=== PATIENT | female | born 1985 | race Caucasian/White ===

== ENCOUNTER 2020-04-27 02:23 | Outpatient (CLI) | payer OTHER, SELFPAY ==
[2020-04-27 18:54] LABS: SARS-CoV-2 RNA PCR Negative
== END 2020-04-27 02:24 | disposition home or self-care (01) ==
PROVIDERS: PCP Physician Assistant; Visit Provider Obstetrics & Gynecology
DX: Z01.812 Encounter for preprocedural laboratory examination (principal); Z20.828 Contact with and (suspected) exposure to other viral communicable diseases
CPT/HCPCS: 87635; C9803; U0003

== ENCOUNTER 2020-04-28 01:32 | Day surgery (SDC) | payer OTHER, SELFPAY ==
[2020-04-26 17:32] VITALS: BMI 19.1
--- NOTE | 2020-04-27 22:40 | PM.IMHP ---
H&P: HPI History of Present Illness Date/Time: 04/27/20 22:40 Chief complaint: missed AB Narrative: 35 y/o at 11 weeks gestation by LMP 02/10/2020 giving a due date of 11/16/20. She presented to the office on 04/26 for a new OB visit, but heart tones were not auscultated. Ultrasound exam showed wyatt IUP with CRL consistent with 8 weeks, with no cardiac motion, a misshapen gestational sac. She has had no bleeding. She desires surgical management. Review of Systems Review of Systems: All systems reviewed & are unremarkable except as noted in HPI and below PMFSH Past Medical History Medical History Migraine Right sided abdominal pain Family History Family History Grandparent Diabetes mellitus Family history of pancreatic cancer Father Patient's father is in good health Other Family history of lymphoma Family history of malignant neoplasm of thyroid Social History Social History Smoking status: Never smoker Second hand tobacco smoke exposure: No Alcohol intake: current Spiritual care concerns: No Comments First was early SAB not requiring D&C. Meds Home Medications and Allergies Home Medications Medication Instructions Recorded Confirmed Type calcium carbonate [Calcium 500] 500 mg PO DAILY 04/26/20 04/26/20 History magnesium 200 mg PO DAILY 04/26/20 04/26/20 History vit no.[id number] 1 tablet PO DAILY 04/26/20 04/26/20 History [ Vitamin] Allergies Allergy/AdvReac Type Severity Reaction Status Date / Time amoxicillin Allergy Unknown Rash Verified 04/26/20 17:47 Sulfa (Sulfonamide Allergy Unknown Rash Verified 04/26/20 17:47 Antibiotics) IVP DYE Allergy Rash Uncoded 04/26/20 17:47 Exam Const: Orientation/consciousness: patient oriented x3 Other: Well-developed, well-nourished female in no acute distress. Neck: Thyroid: thyroid normal Lymphatic: no lymphadenopathy noted (in neck, axilla or inguinal nodes) Resp: Effort & Inspection: normal respiratory effort Auscultation: clear to auscultation bilaterally Cardio: Rate: regular rate Rhythm: regular rhythm Heart sounds: S1 normal heart sound present and S2 normal heart sound present GI: Other: ABD: Soft, nontender, nondistended. No guarding or rebound tenderness. No hepatosplenomegaly. : General: Yes no CVA tenderness Other: External genitalia: normal female hair distribution, without lesion. Urethral meatus: no lesion, non prolapsed. Bladder: no mass, nontender Vagina: well-estrogenized, without lesion or discharge. No cystocele or rectocele. Cervix: no lesion or discharge. Uterus: 8-10 weeks gestational size, anteverted, freely mobile, nontender Adnexa: no mass or tenderness. Anus/perineum: no lesions, nontender Back/Spine/Pelvis: Back: no CVA tenderness Skin: General skin exam: normal color and no rashes or lesions noted Neuro: General: patient oriented x3 Extrem: Other: Extremities: nontender with no edema Psych: Mental Status: mental status grossly normal Affect: normal affect Assessment and Plan Assessment and plan (1) Missed : Code(s): O02.1 - Missed Status: Acute Assessment and Plan: I offered her expectant management versus surgical management. She desires the latter. She understands risks of surgery to include risks of anesthesia, risks of pain, infection, bleeding, blood products, thromboembolic phenomena and damage to adjacent structures such as bowel, bladder, ureters, blood vessels and nerves. She understands all these risks and elects to proceed with dilation and suction curettage.
[2020-04-28] MEDS: LACTATED RINGERS 1,000 ML 30 ML IV CONT ×2 (12:10→14:47)
--- NOTE | 2020-04-28 12:11 | P.PNAN_ITS ---
Anes - Initial Pre Proc Eval Procedure: Operation Date: 04/28/20 13:00 Proposed Procedures p Suction Dilation And Curettage - Pedro Yuen MD Date/Time: 04/28/20 12:11 Surgeon: Pedro Yuen MD Pre Op Diagnosis: missed AB Patient Data Age: 35 Gender: F Height: 5 ft 8 in Weight: 57 kg Allergies Allergy/AdvReac Type Severity Reaction Status Date / Time amoxicillin Allergy Unknown Rash Verified 04/26/20 17:47 Sulfa (Sulfonamide Allergy Unknown Rash Verified 04/26/20 17:47 Antibiotics) IVP DYE Allergy Rash Uncoded 04/26/20 17:47 Home Medications Medication Instructions Recorded Confirmed Type calcium carbonate [Calcium 500] 500 mg PO DAILY 04/26/20 04/26/20 History magnesium 200 mg PO DAILY 04/26/20 04/26/20 History vit no.[id number] 1 tablet PO DAILY 04/26/20 04/26/20 History [ Vitamin] Patient hx anesthesia problems: none Family hx anesthesia problems: none [facility] Past Medical History Medical History (Updated 04/28/20 @ 12:11 by Kailash Mao MD) Migraine Premature ventricular contraction not as frequent now Right sided abdominal pain Family History Family History Grandparent Diabetes mellitus Family history of pancreatic cancer Father Patient's father is in good health Other Family history of lymphoma Family history of malignant neoplasm of thyroid Social History Social History Smoking status: Never smoker Second hand tobacco smoke exposure: No Alcohol intake: current Living arrangements: with family Spiritual care concerns: No Anes - Eval Final PreProcedure Day of Procedure 04/28/20 12:11 Patient weight: normal Heart: regular rate and rhythm Lungs: clear to auscultation Airway: Mallampati scale class II Neurological: alert and oriented Last oral intake: >/= 8 hours ASA classification: II Emergent: no Anesthetic plan: proceed Anesthesia type and monitoring: general GIVS and standard monitoring Informed Consent: The patient's anesthetic plan and its attendant risks and benefits were discussed with the patient/family/POA. Questions were solicited and answers provided to the satisfaction of the patient/family/POA.
[2020-04-28] MEDS: ACETAMINOPHEN 500 MG TABLET 1000 MG PO (12:13)
[2020-04-28 12:19] VITALS: BP 134/89; PULSE 86; TEMP 37.2; O2SAT 100
--- NOTE | 2020-04-28 12:52 | SUR.PREOP ---
Up to bathroom. Patient removed contacts.
--- NOTE | 2020-04-28 12:56 | WPDHPUPDATE1 ---
History and Physical Update Update Date/Time: 04/28/20 12:56 History and Physical has been reviewed, including an updated exam of the patient. There are NO changes in the patient's condition. Risks, benefits, and alternatives have been discussed and questions answered. Patient agrees to proceed with procedure.
[2020-04-28] MEDS: KETOROLAC 30 MG/ML VIAL (*BKC) IM (13:20)
[2020-04-28 13:27] VITALS: BP 120/73; PULSE 69; RESP 14; O2SAT 100
--- NOTE | 2020-04-28 13:28 | PM.PROC ---
Procedure Note - Detailed Date of procedure: 04/28/20 Pre-op diagnosis: missed AB Post-op diagnosis: same Procedure performed: Dilation and suction curettage. Description of procedure: The patient was taken to the operating room where she was prepared and draped in the usual sterile fashion in the dorsal lithotomy position. The bladder was drained with a red rubber catheter. A sterile speculum was placed into the vagina. The anterior lip of the cervix was grasped with a single-tooth tenaculum. Ten mL of 1% lidocaine was administered in a paracervical block. The cervix was gently dilated using Hegar dilators until an 8mm dilator could be passed. The 8mm curved tip suction curette was advanced. Suction curettage was performed and products of conception were aspirated. Sharp curettage was then performed until a good uterine cry was noted. A final pass with the suction curette was made. The tenaculum was removed. Hemostasis was excellent. Sponge, lap, needle and instrument counts were correct. The patient was taken to the recovery room in stable condition. I was present and scrubbed for the entire procedure. Implants: None Anesthesia: MAC and local (1% lidocaine) Surgeon: Pedro Yuen MD Estimated blood loss (mL): 100 Drains: No Packing: No Pathology: yes (endometrial curettings) Complications: None Condition: stable Disposition: PACU Findings: Products of conception noted.
[2020-04-28 14:00] VITALS: BP 110/71; PULSE 57; RESP 16; O2SAT 100
[2020-04-28 14:30] VITALS: BP 116/69; PULSE 57; RESP 16; O2SAT 100
== END 2020-04-28 14:50 | disposition home or self-care (01) ==
PROVIDERS: PCP Physician Assistant; Visit Provider Obstetrics & Gynecology
PROC: (CPT 59820; principal; 2020-04-28 13:00)
DX: O02.1 Missed abortion (principal)
CPT/HCPCS: 59820; 36415; 85461; 88264; 88305; A9270; J1100; J1885; J2250; J2405; J2704; J3010; J7120

== ENCOUNTER 2021-03-09 05:58 | Inpatient (IN) | payer OTHER, SELFPAY ==
[2021-03-09] VITALS (110 sets, daily range): BP systolic 63–153; BP diastolic 35–102; PULSE 61–142; RESP 12–13; TEMP 36.7–36.9; O2SAT 98–100
[2021-03-09 07:04] LABS: Basophils Percent Auto 0.2 % (0.2-1.2); Eosinophils Percent Auto 0.1 % (0-4.4); Hematocrit 38.4 % (37.0-47.0); Hemoglobin 13.2 g/dL (12.0-15.0); Immature Granulocyte Absolute 0.04 K/mm3 (0.00-0.031); Immature Granulocyte Percent A 0.3 % (0-0.5); Lymphocytes Absolute Auto 0.95 K/mm3 (0.9-3.2); Lymphocytes Percent Auto 6.8 % (18.3-44.2); Mean Corpuscular HGB Conc 34.4 g/dl (32-36); Mean Platelet Volume 11.5 fl (7.4-10.4); Monocytes Absolute Auto 0.5 K/mm3 (0.1-0.6); Monocytes Percent Auto 3.5 % (2.6-8.5); Neutrophils Absolute Auto 12.4 K/mm3 (1.3-6.7); Neutrophils Percent Auto 89.1 % (45.5-73.1); Platelet Count Result 169 k/mm3 (150-375); White Blood Count 13.9 K/mm3 (4.5-10.0)
--- NOTE | 2021-03-09 07:04 | LDADM ---
This patient, Rubi Yost, was admitted to Labor/Delivery/Recovery 106 on 03/09/21 at 05:58. Plans for labor, pain management and were discussed with patient. Patient/family oriented to hospital policies and general routines including ID bracelet, bed and alarms, visiting hours, pain management, procedures, bathroom and other care routines, personal items, smoking policy, room service/diet and guest tray routines, security routines, and visiting hours. Patient/Family are encouraged to report perceived risks to care and to ask questions if they do not understand what they are told or what they should do. See OBIX for further documentation.
[2021-03-09] MEDS: LACTATED RINGERS 1,000 ML 125 ML IV CONT ×2 (07:45→08:18)
--- NOTE | 2021-03-09 08:05 | WPDANESEPP ---
Anes - Eval Pre Procedure Procedure: labor epidural Date/Time: 03/09/21 08:05 Surgeon: corazon Pre Op Diagnosis: ctx Patient Data Age: 35 Gender: F Height: Weight: Last Vital Signs Pulse 69 03/09/21 08:01 BP 134/82 03/09/21 08:01 Allergies Allergy/AdvReac Type Severity Reaction Status Date / Time amoxicillin Allergy Unknown Rash Verified 04/26/20 17:47 Sulfa (Sulfonamide Allergy Unknown Rash Verified 04/26/20 17:47 Antibiotics) IVP DYE Allergy Rash Uncoded 04/26/20 17:47 Home Medications Medication Instructions Recorded Confirmed Type calcium carbonate [Calcium 500] 500 mg PO DAILY 04/26/20 02/19/21 History magnesium 200 mg PO PRN 04/26/20 02/19/21 History vit no.[id number] 1 tablet PO DAILY 04/26/20 02/19/21 History [ Vitamin] Laboratory Tests 03/09/21 03/09/21 06:53 06:53 WBC 13.9 K/mm3 H K/mm3 (4.5-10.0) RBC 4.00 M/mm3 L M/mm3 (4.2-5.4) Hgb 13.2 g/dL g/dL (12.0-15.0) Hct 38.4 % % (37.0-47.0) MCV 96.0 fl fl (80-100) MCH 33.0 pg pg (26-34) MCHC 34.4 g/dl g/dl (32-36) RDW 12.0 % % (11.5-14.5) Plt Count 169 k/mm3 k/mm3 (150-375) MPV 11.5 fl H fl (7.4-10.4) Immature Gran % (Auto) 0.3 % % (0-0.5) Neut % (Auto) 89.1 % H % (45.5-73.1) Lymph % (Auto) 6.8 % L % (18.3-44.2) [place] % (Auto) 3.5 % % (2.6-8.5) Eos % (Auto) 0.1 % % (0-4.4) Baso % (Auto) 0.2 % % (0.2-1.2) Lymph # (Auto) 0.95 K/mm3 K/mm3 (0.9-3.2) [place] # (Auto) 0.5 K/mm3 K/mm3 (0.1-0.6) Eos # (Auto) 0.0 K/mm3 K/mm3 (0-0.3) Baso # (Auto) 0.0 K/mm3 K/mm3 (0.0-0.1) Abs Immat Gran (auto) 0.04 K/mm3 H K/mm3 (0.00-0.031) Absolute Neuts (auto) 12.4 K/mm3 H K/mm3 (1.3-6.7) Absolute Nucleated RBC 0.0 K/mm3 K/mm3 (0.0-0.012) Nucleated RBC % 0.0 % % (0.0-0.2) RPR Pending Patient hx anesthesia problems: none Family hx anesthesia problems: none [facility] Past Medical History Medical History (Updated 04/28/20 @ 12:11 by Kailash Mao MD) Migraine Premature ventricular contraction not as frequent now Right sided abdominal pain Family History Family History Grandparent Diabetes mellitus Family history of pancreatic cancer Father Patient's father is in good health Other Family history of lymphoma Family history of malignant neoplasm of thyroid Social History Social History Smoking status: Never smoker Second hand tobacco smoke exposure: No Alcohol intake: current Substance use: never Gender identity (if verbalized by the patient): Female Spiritual care concerns: No Exam Day of Procedure 03/09/21 08:05
[2021-03-09 08:34] LABS: Rapid Plasma Reagin Non-Reactive (NonReactive)
--- NOTE | 2021-03-09 08:50 | WPDOBADMIT ---
Obstetrics - Admit Note Admission Note: record reviewed. Additions to the history and/or subsequent changes in the physical findings follow. 35 y/o at 38 4/7 weeks here with contractions. Labor diagnosed. GBS neg. AVSS NST reactive TOCO: contractions every 2-5 min ABD soft, nontender, gravid, vertex EXT nontender Cervix 5-6/90/0. AROM with clear fluid. A: IUP at term with labor. P: Anticipate .
[2021-03-09] MEDS: OXYTOCIN 30 UNITS/NS 500 ML 30 UNITS/500 ML BAG 999 UNITS IV CONT (12:21)
--- NOTE | 2021-03-09 12:38 | PM.OBPRVD ---
OB - Delivery Note Procedure Delivery date: 03/09/21 Procedure: Induction method: none Delivery augmentation: rupture of membranes Delivery monitor: external FHT and external uterine Route of delivery: Laceration Description: Perineal - 2nd Degree Delivery repair: vicryl (3-0) Specimen: Yes (cord blood) Quantitative Blood Loss (ml): 380 Anesthesia type: Epidural Disposition: PACU Complications: None Narrative: 35 y/o at 38 4/7 weeks gestation who presented to the hospital with complaint of contractions. Labor was diagnosed. Amniotomy was performed with return of clear fluid. She received an epidural for pain control. Her labor progressed and her cervix dilated completely. She pushed with good effort and delivered the 's head to the perineum, followed by the body. The nose and mouth were bulb suctioned. After a delay, the cord was clamped and cut. The was handed off the field. Cord blood was collected. The placenta delivered spontaneously and was grossly normal in appearance. The usual 3 vessel cord was noted. A second degree midline perineal laceration was sustained. This was reapproximated using 3 0 Vicryl in the usual layered fashion. Excellent hemostasis resulted as did excellent reapproximation of the normal anatomy. Needle and instrument counts were correct. The patient was taken to recovery room in stable condition. The went to the nursery in stable condition. I was present and scrubbed for the entire delivery. Baby Date of : 03/09/21 Time of : 12:16 Weeks of gestation at delivery: 38 Infant gender: Male Weight (pounds): 7 Weight (ounces): 13 presentation: vertex position: Right Occiput Anterior Placenta delivery description: Spontaneous and Normal Configuration cord vessel description: 3 Vessels and Delayed Cord Clamping score one minute: 8 score five minutes: 9
[2021-03-09] MEDS: OXYTOCIN 30 UNITS/NS 500 ML 30 UNITS/500 ML BAG 125 UNITS IV CONT (13:00)
[2021-03-09] MEDS: IBUPROFEN 600 MG TABLET PO (13:08)
--- NOTE | 2021-03-09 14:36 | PM.OBDSVD ---
DS: Admitting Diagnosis Admitting Diagnosis Admitting Diagnosis: IUP at 38 4/7 weeks Labor DS: Discharge Diagnosis Discharge Diagnosis (1) (normal spontaneous vaginal delivery): Code(s): O80 - Encounter for full-term uncomplicated delivery Status: Acute OB - DS: Summary OB Procedures : None OB Procedures Intrapartum: Spontaneous Vag Delivery OB Procedures: : None DS: Data Data Completed and Pending Labs on day of discharge: Labs from last 24 hours 03/09/21 03/09/21 03/09/21 06:53 06:53 06:53 WBC 13.9 H RBC 4.00 L Hgb 13.2 Hct 38.4 MCV 96.0 MCH 33.0 MCHC 34.4 RDW 12.0 Plt Count 169 MPV 11.5 H Immature Gran % (Auto) 0.3 Neut % (Auto) 89.1 H Lymph % (Auto) 6.8 L [place] % (Auto) 3.5 Eos % (Auto) 0.1 Baso % (Auto) 0.2 Lymph # (Auto) 0.95 [place] # (Auto) 0.5 Eos # (Auto) 0.0 Baso # (Auto) 0.0 Abs Immat Gran (auto) 0.04 H Absolute Neuts (auto) 12.4 H Absolute Nucleated RBC 0.0 Nucleated RBC % 0.0 RPR Non-reactive Blood Type A Positive Antibody Screen Negative Discharge Plan Discharge Attending physician on discharge: Pedro Yuen Discharging Clinician: Pedro Yuen Patient Disposition: Home, Self-Care Activity: pelvic rest Diet: regular Discharge Instructions: Call or return if temperature above 100.4? F, increased abdominal pain, increased vaginal bleeding or any new problems. Education: Mom and Baby Guide Given to: Mother Follow-Up: Call your delivering provider's office for an appointment to be seen in: 6 Weeks Mom and baby should come to the [facility] for the follow-up appointment. Appointment Date/Time: March 14, 2021 at 10:00 am What to expect at your follow-up visit: Physical Assessment Call [phone] if you are unable to keep your appointment time. BREAST CARE: * Wear a snug supportive bra. * For engorgement discomfort: Breast Feeding: * Apply warm moist washcloths * Express milk as needed to relieve engorgement * Wear loose clothing * For sore nipples: * Identify correct latch-on * Apply warm moist washcloths before and after nursing * Air dry nipples after nursing * May apply Lansinoh cream to nipples PERINEAL CARE: * Until bleeding stops, use your dasia bottle after urinating * Change your pad frequently throughout the day * You may take sitz baths several times a day (fill your bathtub with warm water and soak for 20 minutes.) Do NOT bathe in the water * No tub baths until seen by your physician - You may shower ACTIVITY: * Rest as much as possible. * Do not exercise or lift anything heavier than your baby (such as laundry or other children.) * Avoid stairs or driving as much as possible. * Do not put anything into the vagina. No douching, tampons, or sexual activity until seen by physician. NOTIFY PHYSICIAN IF YOU HAVE ANY QUESTIONS OR IF ANY OF THE FOLLOWING SYMPTOMS OCCUR: * If your stitches become red, swollen, or more painful than what you have experienced in the hospital. * If your vaginal bleeding becomes foul smelling. * If your vaginal bleeding becomes more heavy than a period or if your bleeding changes from pink to bright red. However, you may pass an occasional walnut-sized clot once or twice for the first week . * If you experience a sharp, shooting pain in you calves. * If you discover a hard, reddened area on your breast or if you experience flu-like symptoms. DIET: * Eat regular, well-balanced meals. * Drink plenty of fluids daily. If , drink to thirst. Stand Alone Forms: General Discharge Information Follow-up/Referrals: Pedro Yuen MD [Physician] - 6 Weeks Discharge Medications: New ibuprofen 600 mg tablet 600 mg PO QID PRN (Reason: cramps) Qty: 30 RF: 0 ferrous sulfate 325 mg (65 mg iron) tablet
--- NOTE | 2021-03-09 17:12 | OBPPTRN ---
1603 Patient transferred to post room #282 via W/C. Support person present. Oriented to unit, room, information board, rooming in, admission packet and security measures. Patient verbalizes understanding.
[2021-03-09] MEDS: DOCUSATE SODIUM 100 MG CAPSULE PO (17:52)
[2021-03-10 00:10] VITALS: BP 138/77; PULSE 67; RESP 15; TEMP 37.1; O2SAT 100
[2021-03-10] MEDS: IBUPROFEN 600 MG TABLET PO ×4 (00:25→19:36)
[2021-03-10 04:50] VITALS: BP 122/70; PULSE 68; RESP 16; TEMP 37; O2SAT 100
[2021-03-10 05:18] LABS: Hematocrit 30.4 % (37.0-47.0); Hemoglobin 9.9 g/dL (12.0-15.0)
[2021-03-10] MEDS: POLYSACCHARIDE IRON COMPLEX 150 MG CAPSULE PO ×2 (07:11→17:00)
[2021-03-10] MEDS: DOCUSATE SODIUM 100 MG CAPSULE PO (07:11)
[2021-03-10] MEDS: WITCH HAZEL 40 PADS 1 PAD TOPICAL (07:11)
[2021-03-10] MEDS: MULTIVIT/MIN/PREN/FOL AC/IRON TABLET 1 TAB PO (07:11)
[2021-03-10] MEDS: LANOLIN (LANSINOH) 7.5 GM CREAM 1 APPLIC TOPICAL (07:12)
--- NOTE | 2021-03-10 07:25 | WPDANLDPN2 ---
Anes-Prog Note L&D Date/Time: 03/10/21 07:25 Comfortable throughout: labor and delivery Neuraxial method: epidural Epidural/Spinal procedure site: clean & non-tender Neuro status: Neuro function grossly intact. Cardiovascular status: normal Respiratory status: normal Airway patency: baseline Mental status: baseline Post-Op hydration status: normal Vital Signs: Last Vital Signs Temp 37.0 C 03/10/21 04:50 Pulse 68 03/10/21 04:50 Resp 16 03/10/21 04:50 BP 122/70 03/10/21 04:50 Pulse Ox 100 03/10/21 04:50 Pain score (VAS): 0/10 I/O: Intake & Output 03/09/21 03/09/21 03/10/21 15:59 23:59 07:59 Intake Total 1500 Output Total 380 Balance 1120 Post-procedural complaints: none Patient feedback: Patient satisfied with anesthetic care.
[2021-03-10 07:30] VITALS: BP 133/83; PULSE 65; RESP 18; TEMP 37.3; O2SAT 99
--- NOTE | 2021-03-10 09:38 | PC.NURSE ---
[address] Yuen, pt's c/o severe perineal pain. He examined pt, and reported to nurse, possible hemorrhoid, possible small hematoma, with no increase in swelling since delivery. Will continue treatments with tucks, spray and ice and Ibuprofen. ordering stronger strength of ointment to apply locally to peranal area. nurse and discussed sitz baths for pt to try to do today and at home.
--- NOTE | 2021-03-10 10:58 | PC.NURSE ---
Consulted with patient, reviewed feeding cues, frequencies, duration of feedings, feeding elimination flow sheet, and signs of adequate intake. Demonstrated stimulation techniques to wake for feeding. Assisted with to breast. Reviewed positioning/alignment, holding breast and asymmetrical latch on. was able to latch correctly. Infant nursed eagerly, with steady draws and frequent swallowing noted. Reviewed signs of a correct latch, effective nursing and suck swallow ratio. was able to maintain latch with minimal discomfort to mother. Nipple care reviewed. Instructed mother to call out for RN assistance if she is unable to latch for feeding or she has discomfort with nursing. Instructed feeding should be initiated three hours from start of last feeding or if feeding cues are noted before. Mother voiced understanding of information shared.
[2021-03-10 12:00] VITALS: BP 121/76; PULSE 59; RESP 16; TEMP 36.8; O2SAT 100
--- NOTE | 2021-03-10 13:06 | PM.OBPNVD ---
OB - PN: Subj Subjective Date/time seen: 03/10/21 13:06 Narrative: Pain OK. Would like circumcision for son. OB - PN: Obj Data Labs CBC & Chem 7: 03/10/21 04:59 Labs: Laboratory Results - last 24 hr 03/10/21 04:59 Hgb 9.9 L D Hct 30.4 L OB - PN A/P Plan Comments: A: PPD#1, doing well. P: Routine care. Reviewed circ. Exam Psych: Other: AVSS ABD soft, nontender, fundus firm EXT nontender
[2021-03-10] MEDS: HYDROCORTISONE 2.5% CREAM 30 GM TUBE 1 APPLIC TOPICAL (14:14)
[2021-03-10 20:00] VITALS: BP 120/72; PULSE 65; RESP 18; TEMP 36.9; O2SAT 100
[2021-03-11] MEDS: IBUPROFEN 600 MG TABLET PO (04:20)
--- NOTE | 2021-03-11 08:30 | PC.NURSE ---
Mother called out for observation of feeding. Mother independently latching to breast, is nursing eagerly with a slightly shallow latch. Suggested mother release latch to attempt deeper latch. Reviewed feeding cues, frequencies, duration of feedings, feeding elimination flow sheet, and signs of adequate intake. Demonstrated stimulation techniques to wake infant for feeding. Reviewed positioning/alignment in cross cradle, holding breast in ?U? hold and guided asymmetrical latch on. Infant able to latch correctly with first attempt. nursed eagerly, with steady draws and frequent swallowing noted. Reviewed signs of a correct latch, effective nursing and suck swallow ratio. Infant was able to maintain latch without discomfort to mother. Demonstrated how to adjust latch more deeply while feeding, if needed. Nipple care reviewed of lanolin after feedings, warm compresses needed. Suggested mother stimulate while feeding to increase stimulate, increase intake and to assist with maintaining deep latch. Mother is able to independently latch infant with appropriate positioning/alignment. She denies any nipple discomfort, is feeding as required and waking to feed if needed. Infant has had at least 8 effective feedings in the past 24 hours, and is currently meeting outcomes for weight, output, jaundice and feeding frequencies. Mother states she feels confident to continue effective at home. Reviewed transition to breast milk, signs of adequate intake, and engorgement/relief. Instructed to call ICP if intake/output less than required. Reviewed regular medications mother is taking. Information provided per [place]. Reviewed community resources on the [facility] website and in the Mom/Baby guide. Information on outpatient services provided. Mother has no further questions at this time.
[2021-03-11] MEDS: DOCUSATE SODIUM 100 MG CAPSULE PO (08:57)
[2021-03-11] MEDS: MULTIVIT/MIN/PREN/FOL AC/IRON TABLET 1 TAB PO (08:57)
[2021-03-11] MEDS: POLYSACCHARIDE IRON COMPLEX 150 MG CAPSULE PO (08:57)
[2021-03-11] MEDS: ACETAMINOPHEN 325 MG TABLET 650 MG PO (08:59)
[2021-03-11 09:00] VITALS: BP 131/82; PULSE 65; RESP 18; TEMP 36.9
[2021-03-14 11:04] VITALS: BP 138/87; PULSE 88; RESP 20; TEMP 37.1; O2SAT 100
== END 2021-03-11 12:40 | disposition home or self-care (01) | DRG 807 ==
LOC: ANHLDR 14:37 → ANHOB2 03-10 08:47 → ANHLDR 03-15 11:24 → ANHOB2 03-15 11:24
PROVIDERS: Admitting Provider Obstetrics & Gynecology; PCP Physician Assistant; Visit Provider Student in an Organized Health Care Education/Training Program
DX: O99.02 Anemia complicating childbirth (principal); Z37.0 Single live birth; Z3A.38 38 weeks gestation of pregnancy; D64.9 Anemia, unspecified; O36.8330 Maternal care for abnormalities of the fetal heart rate or rhythm, third trimester, not applicable or unspecified; O70.1 Second degree perineal laceration during delivery
CPT/HCPCS: 36415; 85014; 85018; 85025; 86592; 86850; 86900; 86901; A9270; J2590; J2795; J7120

== ENCOUNTER 2022-05-01 14:09 | Outpatient (CLI) | payer OTHER, SELFPAY ==
--- NOTE | ~2022-05-01 | US_ITS ---
EXAMINATION: US art doppler w press LE BI DATE: 05/01/2022 15:03 INDICATION: Lower limb pain TECHNIQUE: Segmental pressures and plethysmographic and Doppler waveforms of the brachial and lower e xtremity arteries were obtained. COMPARISON: None. FINDINGS: Right and left brachial artery pressures of 109 mm Hg and 109 mm Hg, respectively, are concordant (no rmal difference <= 30 mmHg). The right and left high-thigh pressure indices are 1.19 and 1.17, respec tively (normal > 1.2). The right ankle-brachial index (AMANDA) is 1.17 (normal >= 0.9-1). The right great toe-brachial index (T BI) is 0.66 (normal >= 0.6-0.8). The right lower extremity segmental pressure gradients are normal (n ormal gradients <= 20-30 mmHg between adjacent levels on the same leg or the same levels on the two l egs). Arterial waveforms are triphasic at the right superficial femoral and popliteal arteries and bi phasic at the remaining arteries in the right lower limb with brisk systolic upstrokes throughout. The left AMANDA is 1.21. The left TBI is 0.63. The left lower extremity segmental pressure gradients are normal. Arterial waveforms are biphasic at the left superficial femoral artery and biphasic in the r emaining arteries of the left lower limb with brisk systolic upstrokes throughout. IMPRESSION: 1. Normal AMANDA's and TBI's bilaterally. No significant arterial occlusive disease. Reviewed, dictated and finalized at location A. IMPRESSION: 1. Normal AMANDA's and TBI's bilaterally. No significant arterial occlusive diseas e.
== END 2022-05-01 14:10 | disposition home or self-care (01) ==
PROVIDERS: PCP Physician Assistant; Visit Provider Physician Assistant
DX: M79.606 Pain in leg, unspecified (principal)
CPT/HCPCS: 93923

== ENCOUNTER 2023-03-14 05:00 | Inpatient (IN) | payer OTHER, SELFPAY ==
[2023-03-14] VITALS (107 sets, daily range): BP systolic 82–149; BP diastolic 41–98; PULSE 57–174; RESP 16–20; TEMP 36.5–36.9; O2SAT 99–100; BMI 23.4
[2023-03-14 05:37] LABS: Basophils Percent Auto 0.4 % (0.2-1.2); Eosinophils Absolute Auto 0.1 K/mm3 (0-0.3); Eosinophils Percent Auto 1.8 % (0-4.4); Hematocrit 35.8 % (37.0-47.0); Hemoglobin 12.2 g/dL (12.0-15.0); Immature Granulocyte Absolute 0.05 K/mm3 (0.00-0.031); Immature Granulocyte Percent A 0.7 % (0-0.5); Lymphocytes Absolute Auto 1.66 K/mm3 (0.9-3.2); Lymphocytes Percent Auto 21.6 % (18.3-44.2); Mean Corpuscular HGB Conc 34.1 g/dl (32-36); Mean Corpuscular Volume 99.7 fl (80-100); Monocytes Absolute Auto 0.4 K/mm3 (0.1-0.6); Monocytes Percent Auto 5.6 % (2.6-8.5); Neutrophils Absolute Auto 5.4 K/mm3 (1.3-6.7); Neutrophils Percent Auto 69.9 % (45.5-73.1); Platelet Count Result 159 k/mm3 (150-375); Red Blood Count 3.59 M/mm3 (4.2-5.4); Red Cell Distribution Width 13.4 % (11.5-14.5); White Blood Count 7.7 K/mm3 (4.5-10.0)
--- NOTE | 2023-03-14 05:42 | LDADM ---
This patient, Rubi Yost, was admitted to Labor/Delivery/Recovery 104 on 03/14/23 at 05:00. Plans for labor, pain management and were discussed with patient. Patient/family oriented to hospital policies and general routines including ID bracelet, bed and alarms, visiting hours, pain management, procedures, bathroom and other care routines, personal items, smoking policy, room service/diet and guest tray routines, security routines, and visiting hours. Patient/Family are encouraged to report perceived risks to care and to ask questions if they do not understand what they are told or what they should do. See OBIX for further documentation.
[2023-03-14] MEDS: LACTATED RINGERS 1,000 ML 125 ML IV CONT ×3 (05:55→09:48)
[2023-03-14] MEDS: OXYTOCIN 30 UNITS/NS 500 ML 30 UNITS/500 ML BAG IV CONT (05:55)
--- NOTE | 2023-03-14 06:17 | WPDANESEPP ---
Anes - Eval Pre Procedure Procedure: labor epidural Date/Time: 03/14/23 06:17 Pre Op Diagnosis: IOL Patient Data Age: 37 Gender: F Height: 1.73 m Weight: 70 kg Last Vital Signs Pulse 74 03/14/23 06:01 BP 128/82 03/14/23 06:01 Allergies Allergy/AdvReac Type Severity Reaction Status Date / Time Iodinated Contrast Media Allergy Intermediate Rash Verified 02/23/23 13:40 amoxicillin Allergy Unknown Rash Verified 02/23/23 13:40 Sulfa (Sulfonamide Allergy Unknown Rash Verified 02/23/23 13:40 Antibiotics) Home Medications Medication Instructions Recorded Confirmed Type calcium carbonate 500 mg calcium 500 mg PO DAILY 04/26/20 08/28/22 History (1,250 mg) tablet (Calcium 500) vits no.124-ferrous fum 1 tablet PO DAILY 04/26/20 08/28/22 History 27 mg iron-folic acid 800 mcg tablet ( Vitamin) magnesium 200 mg tablet 200 mg PO DAILY 05/17/22 08/28/22 History valacyclovir 1 gram tablet 1,000 mg PO Q8H 02/23/23 02/23/23 History (Valtrex) Laboratory Tests 03/14/23 05:28 WBC 7.7 K/mm3 (4.5-10.0) RBC 3.59 L M/mm3 (4.2-5.4) Hgb 12.2 g/dL (12.0-15.0) Hct 35.8 L % (37.0-47.0) MCV 99.7 fl (80-100) MCH 34.0 pg (26-34) MCHC 34.1 g/dl (32-36) RDW 13.4 % (11.5-14.5) Plt Count 159 k/mm3 (150-375) MPV 11.0 H fl (7.4-10.4) Immature Gran % (Auto) 0.7 H % (0-0.5) Neut % (Auto) 69.9 % (45.5-73.1) Lymph % (Auto) 21.6 % (18.3-44.2) Hitchcock % (Auto) 5.6 % (2.6-8.5) Eos % (Auto) 1.8 % (0-4.4) Baso % (Auto) 0.4 % (0.2-1.2) Lymph # (Auto) 1.66 K/mm3 (0.9-3.2) Hitchcock # (Auto) 0.4 K/mm3 (0.1-0.6) Eos # (Auto) 0.1 K/mm3 (0-0.3) Baso # (Auto) 0.0 K/mm3 (0.0-0.1) Abs Immat Gran (auto) 0.05 H K/mm3 (0.00-0.031) Absolute Neuts (auto) 5.4 K/mm3 (1.3-6.7) Absolute Nucleated RBC 0.0 K/mm3 (0.0-0.012) Nucleated RBC % 0.0 % (0.0-0.2) RPR Pending Patient hx anesthesia problems: none Family hx anesthesia problems: none Results Review: All pre-operative results and documents have been reviewed as part of the pre-operative evaluation. [facility] Past Medical History Medical History (Updated 03/14/23 @ 06:17 by Cornelia Adam CRNA) Headache Migraine Premature ventricular contraction not as frequent now Restless leg Right sided abdominal pain Scoliosis Surgical History Surgical History History of D&C Family History Family History Grandparent Diabetes mellitus Family history of pancreatic cancer Alcoholism Father Patient's father is in good health Alcoholism Mother Heart disease Other Thyroid disorder Other Family history of lymphoma Family history of malignant neoplasm of thyroid Social History Social History Smoking status: Never smoker Second hand tobacco smoke exposure: No Alcohol intake: current Substance use: never Lack of Transportation: No Lack of Food: Never True Current Housing: I Have Housing Concerned About Future Housing: No Difficulty Paying Gas/Electric Bills: No Difficulty Paying for Meds: No Currently Unemployed: No Education: Bachelor's Degree Difficulty w/ Childcare or Family Care: No Living arrangements: with family Gender identity (if verbalized by the patient): Female Spiritual care concerns: No Exam Day of Procedure 03/14/23 06:17 Patient weight: normal Heart: regular rate and rhythm (has pvs's) Lungs: clear to auscultation Airway: Mallampati scale Neurological: alert and oriented
[2023-03-14 07:11] LABS: Rapid Plasma Reagin Non-Reactive (NonReactive)
--- NOTE | 2023-03-14 08:57 | WPDOBADMIT ---
Obstetrics - Admit Note Admission Note: record reviewed. Additions to the history and/or subsequent changes in the physical findings follow. 37 y/o at 39 3/7 weeks here for scheduled induction of labor. GBS neg. AVSS NST reactive TOCO: contractions every 2-4 min ABD soft, nontender, gravid, vertex EXT nontender Cervix 4/50/-2. AROM with clear fluid. Vertex. A: IUP at term with favorable cervix, desiring induction of labor P: Oxytocin. Anticipate .
--- NOTE | 2023-03-14 12:47 | P.PCNOB_ITS ---
OB - Delivery Note Procedure Delivery date: 03/14/23 Procedure: Induction of labor with Induction method: Per Pitocin Protocol Delivery augmentation: Rupture of Membranes Delivery monitor: External FHT, External Uterine and Internal Uterine Route of delivery: Laceration Description: Perineal - 2nd Degree Delivery repair: vicryl (3-0) Specimen: Yes (Cord blood) Quantitative Blood Loss (ml): 160 Anesthesia type: Epidural Disposition: PACU Complications: None Narrative: 37 y/o G4 1021 at 39 3/7 weeks gestation who presented to the hospital for induction of labor. Oxytocin was administered intravenously. Amniotomy was performed with return of clear fluid. She received an epidural for pain control. Her labor progressed and her cervix dilated completely. She pushed with good effort and delivered the 's head to the perineum, followed by the body. The nose and mouth were bulb suctioned. After a delay, the cord was clamped and cut. The was handed off the field. Cord blood was collected. The placenta delivered spontaneously and was grossly normal in appearance. The usual 3 vessel cord was noted. A second degree midline perineal laceration was sustained. This was reapproximated using 3 0 Vicryl in the usual layered fashion. Excellent hemostasis resulted as did excellent reapproximation of the normal anatomy. Needle and instrument counts were correct. The patient was taken to recovery room in stable condition. The went to the nursery in stable condition. I was present and scrubbed for the entire delivery. [place] Baby Date of : 03/14/23 Time of : 12:25 Weeks of gestation at delivery: 39 Infant gender: Male Weight (pounds): 8 Weight (ounces): 5 presentation: vertex position: Right Occiput Anterior Placenta delivery description: Spontaneous and Normal Configuration Cord Vessel Description: 3 Vessels and Delayed Cord Clamping score one minute: 9 score five minutes: 9
--- NOTE | 2023-03-14 12:51 | PM.OBDSVD ---
DS: Admitting Diagnosis Discharge Date 03/16/23 Admitting Diagnosis IUP at 39 3/7 weeks DS: Discharge Diagnosis Discharge Diagnosis (1) (normal spontaneous vaginal delivery): Code(s): O80 - Encounter for full-term uncomplicated delivery Status: Acute OB - DS: Summary OB Procedures : None OB Procedures Intrapartum: Spontaneous Vag Delivery OB Procedures: : None Time Spent with Patient Time attestation: Total time spent providing and/or coordinating discharge services: DS: Data Data Completed and Pending Labs on day of discharge: Labs from last 24 hours 03/14/23 03/14/23 05:32 05:28 WBC 7.7 RBC 3.59 L Hgb 12.2 Hct 35.8 L MCV 99.7 MCH 34.0 MCHC 34.1 RDW 13.4 Plt Count 159 MPV 11.0 H Immature Gran % (Auto) 0.7 H Neut % (Auto) 69.9 Lymph % (Auto) 21.6 Cottle % (Auto) 5.6 Eos % (Auto) 1.8 Baso % (Auto) 0.4 Lymph # (Auto) 1.66 Cottle # (Auto) 0.4 Eos # (Auto) 0.1 Baso # (Auto) 0.0 Abs Immat Gran (auto) 0.05 H Absolute Neuts (auto) 5.4 Absolute Nucleated RBC 0.0 Nucleated RBC % 0.0 RPR Non-reactive Blood Type A Positive Antibody Screen Negative Discharge Plan Discharge Attending physician on discharge: Pedro Yuen Consulting providers: Ubaldo Merrill; Cornelia Adam; Missael Ware Discharging Clinician: Pedro Yuen Patient Disposition: Home, Self-Care Activity: pelvic rest Diet: regular Discharge Instructions: Call or return if temperature above 100.4? F, increased abdominal pain, increased vaginal bleeding or any new problems. Education: Mom and Baby Guide Given to: Mother Follow-Up: Call your delivering provider's office for an appointment to be seen in: 6 Weeks Mom and baby should come to the [facility] for the follow-up appointment. Appointment Date/Time: March 17, 2023 at 2:30 pm What to expect at your follow-up visit: Blood Pressure Check Physical Assessment Call [phone] if you are unable to keep your appointment time. BREAST CARE: * Wear a snug supportive bra. * For engorgement discomfort: Breast Feeding: * Apply warm moist washcloths * Express milk as needed to relieve engorgement * Wear loose clothing * For sore nipples: * Identify correct latch-on * Apply warm moist washcloths before and after nursing * Air dry nipples after nursing * May apply Lansinoh cream to nipples EPISIOTOMY/PERINEAL CARE: * Until bleeding stops, use your dasia bottle after urinating * Change your pad frequently throughout the day * You may take sitz baths several times a day (fill your bathtub with warm water and soak for 20 minutes.) Do NOT bathe in the water * No tub baths until seen by your physician - You may shower ACTIVITY: * Rest as much as possible. * Do not exercise or lift anything heavier than your baby (such as laundry or other children.) * Avoid stairs or driving as much as possible. * Do not put anything into the vagina. No douching, tampons, or sexual activity until seen by physician. NOTIFY PHYSICIAN IF YOU HAVE ANY QUESTIONS OR IF ANY OF THE FOLLOWING SYMPTOMS OCCUR: * If your perineum becomes red, swollen, or more painful than what you have experienced in the hospital. * If your vaginal bleeding becomes foul smelling. * If your vaginal bleeding becomes more heavy than a period or if your bleeding changes from pink to bright red. However, you may pass an occasional walnut-sized clot once or twice for the first week . * If you experience a sharp, shooting pain in you calves. * If you discover a hard, reddened area on your breast or if you experience flu-like symptoms. DIET: * Eat regular, well-balanced meals. * Drink plenty of fluids daily. If , drink to thirst. Stand Alone Forms: General Discharge Information Follow-up/Referrals: H
[2023-03-14] MEDS: OXYTOCIN 30 UNITS/NS 500 ML 30 UNITS/500 ML BAG 125 UNITS IV CONT (12:56)
--- NOTE | 2023-03-14 12:57 | PC.NURSE ---
1203 - Introductions were made and mother shared how she would like to feed her baby with exclusive along with her past experience being successful. Encouraged mother to place [id number] until the first feeding if infant is stable and to wait on the weight. Mother is breathing through contraction awaiting delivery.Resources provided with educational trifold for bonding and feeding infant. Parents voiced understanding of information and to call if there is a request for assistance.
--- NOTE | 2023-03-14 15:57 | PC.NURSE ---
Patient transferred to post room #291 via wheelchair. Support person present. Oriented to unit, room, information board, rooming in, admission packet and security measures. Patient verbalizes understanding.
[2023-03-14] MEDS: IBUPROFEN 600 MG TABLET PO (17:36)
[2023-03-14] MEDS: DOCUSATE SODIUM 100 MG CAPSULE PO (17:36)
[2023-03-15] MEDS: IBUPROFEN 600 MG TABLET PO ×3 (04:43→17:54)
[2023-03-15 05:06] LABS: Hematocrit 32.2 % (37.0-47.0); Hemoglobin 10.6 g/dL (12.0-15.0)
--- NOTE | 2023-03-15 07:45 | WPDANLDPN2 ---
Anes-Prog Note L&D Date/Time: 03/15/23 07:45 Comfortable throughout: labor and delivery Neuraxial method: epidural Epidural/Spinal procedure site: clean & non-tender Neuro status: Neuro function grossly intact. Cardiovascular status: normal Respiratory status: normal Airway patency: baseline Mental status: baseline Post-Op hydration status: normal Vital Signs: Last Vital Signs Temp 36.5 C 03/14/23 23:30 Pulse 58 L 03/14/23 23:30 Resp 16 03/14/23 23:30 BP 115/59 L 03/14/23 23:30 Pulse Ox 100 03/14/23 16:00 O2 Del Method Room Air 03/14/23 16:00 Pain score (VAS): 1 I/O: Intake & Output 03/14/23 03/14/23 03/15/23 15:59 23:59 07:59 Intake Total 2500 240 Output Total 308 Balance 2192 240 Post-procedural complaints: none Patient feedback: Patient satisfied with anesthetic care.
[2023-03-15 08:30] VITALS: BP 129/83; PULSE 90; RESP 16; TEMP 36.8; O2SAT 100
--- NOTE | 2023-03-15 08:43 | PM.OBPNVD ---
OB - PN: Subj Subjective Date/time seen: 03/15/23 08:43 Narrative: Pain OK. Would like circumcision for son. OB - PN: Obj Data Labs 03/15/23 04:48 Labs: Laboratory Results - last 24 hr 03/15/23 04:48 Hgb 10.6 L Hct 32.2 L OB - PN A/P Plan Comments: A: PPD#1, doing well. P: Routine care. Reviewed circ. Exam Psych: Other: AVSS ABD soft, nontender, fundus firm EXT nontender
[2023-03-15] MEDS: DOCUSATE SODIUM 100 MG CAPSULE PO ×2 (10:00→17:54)
--- NOTE | 2023-03-15 15:34 | PC.NURSE ---
[id number] Mother verbalizes she is able to independently latch with appropriate positioning/alignment. She denies any nipple discomfort and is responsively . Infant is currently meeting outcomes for weight, output, jaundice and feeding frequencies of 8-12 times in 24 hours. Mother works well with her and has a 15 month successful history with her first child. Reviewed positioning and ear, shoulder, hip alignment, supporting the breast to facilitate a deep latch, asymmetrical latch (off-center), leading with the chin with a big, open, wide gape with body close to mother reminding of the stage. Infant latched optimally to the left breast in cross cradle position. Education given to mother of how to visualize suck/swallow ratios and listen for drinking at the breast. Infant was able to maintain latch without discomfort to mother. Nipple care reviewed with optimal latch and good positioning. Reviewed good handwashing when or touching the breast/nipples to prevent infection. Resources used to facilitate learning were used with the mom and baby guide. Mother voiced understanding of skin to skin, stimulating with massage touch, responsive feedings, hand expressed colostrum, talking to to encourage if it has been 2 -2.5 hours since the start of the last , to call if infant does not latch, or if there is discomfort with . Mother voiced understanding of information, demonstrated learning and will call if there is a request for assistance.
[2023-03-15 20:37] VITALS: BP 136/88; PULSE 70; RESP 16; TEMP 36.8; O2SAT 98
[2023-03-16] MEDS: IBUPROFEN 600 MG TABLET PO (04:35)
--- NOTE | 2023-03-16 06:49 | PM.OBPNVD ---
OB - PN: Subj Subjective Date/time seen: 03/16/23 06:49 Patient comments: no complaints and pain well controlled baby status: doing well OB - PN: Obj Data Labs 03/15/23 04:48 OB - PN A/P Plan Plan: routine care, discharge home and follow up 6 weeks Time Spent With Patient Time: Total time spent is greater than 50% in coordination of care (as documented) at patient's floor/unit and/or counseling patient: Time with patient: less than 15 minutes Exam Const: General: cooperative, healthy appearing and comfortable Nutritional Appearance: average body habitus Orientation/consciousness: oriented to person, oriented to place and oriented to time HENMT: Head: normal to inspection Resp: Effort & Inspection: normal respiratory effort GI: Inspection: normal to inspection ( fundus firm below the umbilicus)
[2023-03-16 07:40] VITALS: BP 126/79; PULSE 84; RESP 20; TEMP 36.4; O2SAT 99
[2023-03-16] MEDS: DOCUSATE SODIUM 100 MG CAPSULE PO (07:59)
[2023-03-17 14:58] VITALS: BP 124/79; PULSE 80; RESP 18; TEMP 37.1; O2SAT 99
== END 2023-03-16 12:20 | disposition home or self-care (01) | DRG 807 ==
LOC: ANHLDR 12:52 → ANHOB2 16:02
PROVIDERS: Admitting Provider Obstetrics & Gynecology; PCP Physician Assistant; Visit Provider Obstetrics & Gynecology
DX: O70.1 Second degree perineal laceration during delivery (principal); Z37.0 Single live birth; Z3A.39 39 weeks gestation of pregnancy
CPT/HCPCS: 36415; 85014; 85018; 85025; 86592; 86850; 86900; 86901; A9270; J2590; J2795; J7120

== ENCOUNTER 2023-11-10 07:18 | Outpatient (CLI) | payer OTHER, SELFPAY ==
--- NOTE | ~2023-11-10 | US_ITS ---
EXAMINATION: US right upper quadrant DATE: 11/10/2023 07:49 INDICATION: Right upper quadrant abdominal pain. TECHNIQUE: Multiple grayscale and Doppler ultrasound images of the abdomen were obtained. COMPARISON: Ultrasound 05/02/2019, CT abdomen and pelvis 07/25/2019 FINDINGS: The visualized portions of the head, body, and tail of the pancreas are normal. The liver i s normal without focal lesion. No liver surface nodularity. There are normal flow in main portal vein . The gallbladder is normal in size. No gallstones or gallbladder wall thickening. There is no sonogr aphic Steinberg sign. The common duct is normal and measures 3 mm. IMPRESSION: 1. Normal right upper quadrant ultrasound. Reviewed, dictated and finalized at location A. START TEACHER
== END 2023-11-10 07:19 ==
PROVIDERS: PCP Obstetrics & Gynecology; Visit Provider Obstetrics & Gynecology
DX: R10.11 Right upper quadrant pain (principal)
CPT/HCPCS: 76705

== ENCOUNTER → 2023-11-10 07:20 | Outpatient (CLI) | payer OTHER, SELFPAY ==
--- NOTE | ~2023-11-10 | XR_ITS ---
EXAM: XR lumbar spine 2-3V DATE: 11/10/2023 08:01 HISTORY: M54.9 - Dorsalgia, unspecified . COMPARISON: 07/08/2018. FINDINGS: Decreased bone mineralization. 5 nonrib-bearing lumbar-type vertebral bodies. Pedicles inta ct. Normal vertebral body alignment. Vertebral body heights preserved. Mild spinal asymmetry. Moderat e L5-S1 narrowing. Mild disc space narrowing at T10-11 and T11-12. Normal facets and posterior elemen ts. No fracture or dislocation. IMPRESSION: Osteopenia. Moderate L5-S1 degenerative disc disease. Reviewed, dictated and finalized at location K. LY SERVICES ASSISTANT
== END ==
PROVIDERS: PCP Internal Medicine; Visit Provider Internal Medicine
DX: M54.9 Dorsalgia, unspecified (principal); M85.88 Other specified disorders of bone density and structure, other site; M51.37 Other intervertebral disc degeneration, lumbosacral region
CPT/HCPCS: 72100

== ENCOUNTER 2024-08-25 15:50 | Outpatient (CLI) | payer OTHER, SELFPAY ==
--- NOTE | ~2024-08-25 | MR_ITS ---
EXAMINATION: MR brain/brain stem wo con DATE: 08/25/2024 16:50 INDICATION: Headache. TECHNIQUE: Magnetic resonance imaging (MRI) of the brain and brainstem was performed without intraven ous contrast. COMPARISON: Brain MRI 02/14/2019, head CT 12/06/2018 FINDINGS: There is no intracranial hemorrhage, acute infarction, or abnormal intracranial mass lesion . The ventricles are normal in size. There is mild mucosal thickening in left maxillary sinus. The or bits are normal. The mastoid air cells are normal. IMPRESSION: 1. Normal brain. Reviewed, dictated and finalized at location A. LITION HAMMER OPERATOR IMPRESSION: 1. Normal brain.
== END 2024-08-25 15:51 | disposition home or self-care (01) ==
PROVIDERS: PCP Internal Medicine; Visit Provider Internal Medicine
DX: R51.9 Headache, unspecified (principal)
CPT/HCPCS: 70551

== ENCOUNTER 2024-10-06 07:47 | Outpatient (CLI) | payer OTHER, SELFPAY ==
--- NOTE | ~2024-10-06 | MM_ITS ---
EXAMINATION: MM screening segun BI w izzy HISTORY: Screening TECHNIQUE: Craniocaudal and mediolateral oblique 3-D tomosynthesis images were obtained and synthetic 2-D images were generated. CAD analysis was submitted and interpreted. COMPARISON: No prior mammogram is available for comparison at this institution. BREAST PARENCHYMAL COMPOSITION: Dense: The breasts are extremely dense, which lowers the sensitivity of mammography. FINDINGS: There is no evidence of suspicious mass, calcification, or architectural distortion to sugg est malignancy in either breast. There has been no suspicious interval change. IMPRESSION: 1. No mammographic evidence of malignancy. 2. Recommend routine screening mammography in one year. BI-RADS Category 1: Negative Reviewed, dictated and finalized at location A. F ARCHITECT
== END 2024-10-06 07:48 | disposition home or self-care (01) ==
PROVIDERS: PCP Obstetrics & Gynecology; Visit Provider Obstetrics & Gynecology
DX: Z12.31 Encounter for screening mammogram for malignant neoplasm of breast (principal)
CPT/HCPCS: 77063; 77067

== ENCOUNTER 2025-02-04 14:20 | Outpatient (CLI) | payer OTHER, SELFPAY ==
--- NOTE | ~2025-02-04 | MR_ITS ---
MRI of the lumbar spine Clinical History: Left-sided pain Technique: Axial T2-weighted images, and sagittal T1-weighted, T2-weighted, and T2 fat-sat images wer e acquired. Findings: There is no fracture of the lumbar spine. There is 3 mm retrolisthesis of L5 over S1. No savage spicious bone marrow signal abnormality seen. There are Modic signal changes about the L5-S1 disc spa ce. At L1-L2, L2-L3, L3-L4, there is no disc bulge or herniation. There is mild facet arthropathy at thes e levels. No spinal canal stenosis or neural foraminal narrowing at these levels. At L4-L5, there is minimal disc desiccation. No disc bulge or herniation. There is mild facet arthrop athy. No central canal stenosis or neural foraminal narrowing. At L5-S1, there is moderate to severe degenerative disc narrowing with mild disc bulge. There is mini mal facet arthropathy. No central canal stenosis. Neural foramina are preserved. Paravertebral soft tissues are unremarkable. Impression: Degenerative disease at L5-S1, as detailed above. Additional minimal degenerative changes in lumbar s pine, as above. Reviewed, dictated and finalized at location M. Impression: Degenerative disease at L5-S1, as detailed above. Additional minimal degenerati ve changes in lumbar spine, as above.
== END 2025-02-04 14:21 | disposition home or self-care (01) ==
LOC: MICIMG 14:23
PROVIDERS: PCP Nurse Practitioner Family; Visit Provider Nurse Practitioner Family
DX: M51.379 Other intervertebral disc degeneration, lumbosacral region without mention of lumbar back pain or lower extremity pain (principal); G89.29 Other chronic pain
CPT/HCPCS: 72148

== ENCOUNTER 2025-03-27 14:22 | Outpatient (CLI) | payer OTHER, SELFPAY ==
--- NOTE | ~2025-03-27 | CT_ITS ---
Non-contrast CT scan of the Abdomen and Pelvis Clinical indication: Abdominal pain Technique: 2.5 mm axial scans were obtained through the abdomen and pelvis without intravenous or or al contrast. Dose reduction technique was used on this scan by utilizing automated exposure control a nd iterative reconstruction technique. The dose-length product (DLP) was 316.66 mGy-cm. Findings: Images through the lung bases reveal no abnormalities. There is no evidence of renal or ureteral calculi. The kidneys and the ureters are nondilated. The liver, spleen, pancreas, gallbladder, and adrenals appear normal. There is no aortic aneurysm. There is no evidence of bowel obstruction. Images through the pelvis were performed. There is no evidence of ascites or lymphadenopathy. Urinary bladder unremarkable. No pelvic mass seen. Impression: No significant abnormality seen. Reviewed, dictated and finalized at [facility]. Impression: No significant abnormality seen.
== END 2025-03-27 14:23 | disposition home or self-care (01) ==
LOC: MICIMG 14:22
PROVIDERS: PCP Nurse Practitioner Family; Visit Provider Nurse Practitioner Family
DX: R10.32 Left lower quadrant pain (principal)
CPT/HCPCS: 74176

== ENCOUNTER 2025-06-24 19:02 | Emergency (ER) | payer OTHER, SELFPAY ==
--- NOTE | ~2025-06-24 | XR_ITS ---
XR chest 2V HOSTORY: chest pain COMPARISON:[ None] FINDINGS: Frontal and lateral views of the chest were obtained. The lungs are clear. The heart size is normal in size. Pulmonary vasculature is unremarkable. Osseous structures are intact. IMPRESSION: No acute lung findings.] [ ] Reviewed, dictated and finalized at location S.
--- OUTSIDE RECORDS SUMMARY | 2025-06-24 17:15 | XMS_ITS | Encounter Summary ---
Author Organization Formerly [facility] Address [address] [place] [address] Care Team Providers Care Borderer Name Role Phone Paty Bowles NP Primary Care Provider [phone] Pedro Yuen MD Unavailable [phone] Reason for Referral * Consultation (Routine) - Pending Review Specialty Diagnoses / Procedures Referred By Ron méndez Referred To Contact Cardiology Diagnoses Other chest pain Teresa Bermudez NP [address] [place] [address] [address] [place] [address] Phone: tel: [facility] Cardiology at [address] [place] [address] Phone: tel: fax: Referral ID Status Reason Start Date Expiration Date Visits Requested Visits Authorized [id number] Pending Review Specialty Services Required 07/24/2026 1 1 Question Answer Please select the performing region: [facility] [[id number]] Please select the performing department: [facility] [[id number]] # of visits: 1 Reason for Visit * Reason Comments Chest Pain Chest pain and tight ness since 06/13/25 that has been on and off. Reports she's having the tightness currently and slight SOB. C/o pain is mostly sternal area and on R side. Reports she has a slight cough and possibly chest congestion. Reports her kids at home are sick with colds. Encounter Details Date Type Department Care Team (Late st Contact Info) Description 06/24/2025 5:15 PM CDT Office Visit [facility] Convenient Care at [address] [address] Teresa Bermudez NP [address] [facility] [address] [place] [address] Other chest pain (Primary Dx) Social History Tobacco Use Types Packs/Day Years Used Date Smoking Tobacco: Never Smokeless Tobacco: Never AUDIT-C Answer Date Recorded Q1: How often do you have a drink containing alc ohol? Monthly or less 01/13/2025 Q2: How many drinks containi ng alcohol do you have on a typical day when you are drinking? 1 or 2 01/13/2025 Q3: How often do you have si x or more drinks on one occasion? Never 01/13/2025 PHQ-2 Answer Date Recorded PHQ-2 Total Score (If total score is 3 or more points, staff should administer the PHQ-9) 0 05/04/2025 Comments Unknown Sex and Gender Information Value Date Recorded Sex Assigned at Not on file Legal Sex Female 9:57 AM CDT Gender Identity Not on file Sexual Orientation Not on file documented as of this encounter Last Filed Vital Signs Vital Sign Reading Time Taken Comments Blood Pressure 122/70 06/24/2025 5:22 PM CDT Pulse 87 06/24/2025 5:22 PM CDT Temperature 36.8 C (98.2 F) 06/24/2025 5:22 PM CDT Respiratory Rate 20 06/24/2025 5:22 PM CDT Oxygen Saturation 97% 06/24/2025 5:22 PM CDT Inhaled Oxygen Concentration - - Weight 59.9 kg (132 lb) 06/24/2025 5:22 PM CDT Height - - Body Mass Index 20.07 05/28/2025 1:11 PM CDT documented in this encounter Plan of Treatment Scheduled Referrals Name Type Priority Associated Diagnoses Order Schedule Ambulatory referral to Cardiology Outpatient Referral Routine Other chest pain Expected: 08/24/2025 (Approximate), Expires: 06/24/2026 documented as of this encounter Procedures Procedure Name Priority Date/Time Associated Diagnosis Comments ECG 12-LEAD Routine 06/24/2025 5:35 PM CDT Other chest pain documented in this encounter Results * ECG 12 lead (06/24/2025 5:35 PM CDT) Teresa Bermudez WARD SERVICE SUPERVISOR ECG ORDERABLES Final Result documented in this encounter Visit Diagnoses Diagnosis Other chest pain- Primary documented in this encounter Care Teams Borderer Relationship Specialty Start Date End Date Paty Bowles NP [address] [facility] [address] [place] [address] PCP - General Family Medicine 01/13/25 Pedro Yuen MD [address] [place] [address] Referring Physician Obstetrics and Gynecology 01/13/25 documented as of this encounter
--- OUTSIDE RECORDS SUMMARY | 2025-06-24 19:04 | XMS_ITS | Clinical Summary ---
Author Organization [facility] [address] Address [address] [place] [address] Care Team Providers Care Advisor Advocate Angel Co Founder Name Role Phone Paty Bowles NP Primary Care Provider [phone] Pedro Yuen MD Unavailable Allergies Active Allergy Reactions Criticality Noted Date Comments Amoxicillin Rash Medium 11/28/2018 Clarithromycin Diarrhea,Stomach upset Low Diphenhydramine Hcl Rash Medium 11/28/2018 Iohexol Rash Medium 03/25/2025 Contrast Sulfa (Sulfonamide Antibiotics) Rash Medium 11/28/2018 Medications magnesium oxide 400 mg magnesium capsule Take by mouth Active calcium carbonate (OS-JESUS) 1,500 mg (600 mg elemental) tablet Take 1 tablet (1,500 mg total) by mouth Active PNV #[id number]-[id number] acid-dha 35 mg iron-5 mg iron-1 mg capsule Take by mouth daily Active pantoprazole DR (PROTONIX) 40 mg EC tabletIndicatio ns:Laryngophary ngeal reflux (LPR) Take 1 tablet (40 mg total) by mouth 2 (two) times a day 60 tablet 3 2 Active Additional Information Patient not taking.Reported on 05/28/2025 acidophilus-pec tin, citrus 100 million cell-10 mg capsule Take by mouth Activ e sertraline (ZOLOFT) 25 mg tablet Take 1 tablet (25 mg total) by mouth daily 30 tablet 1 5 Active Additional Information Patient not taking.Reported on 06/24/2025 Active Problems Problem Noted Date Diagnosed Date Anemia 05/04/2025 Degenerative disc disease at L5-S1 level 025 Exposure to COVID-19 virus 05/04/2025 GERD (gastroesophageal reflux disease) Missed 05/04/2025 (normal spontaneous vaginal delivery) 05/04 Osteopenia 05/04/2025 Restless leg 05/04/2025 Anxiety 03/19/2025 Assessment & Plan (05/04/2025 3:36 PM CDT): Assessment & Plan (03/19/2025 9:12 PM CDT): Left lower quadrant abdominal pain 03/11/2025 Assessment & Plan (05/28/2025 2:26 PM CDT): Reports that she can have complaints of lower abdominal discomfort. Reports that she can have up to 3-4 bowel movements in his not always feel like she is fully evacuated States that this pain has been going on for multiple years. States this can be cramping in nature. Most recent colonoscopy was performed in 2019 that was unremarkable. Recent CT scan performed on 03/21/2025 was unremarkable. Does report she was previously on a probiotic but recently DC as she was having looser types of stools. -Recommended starting an ipza-vtt-txjlfrl probiotic like align or [employer] -Suspect that discomfort may be due to underlying constipation as she can have multiple incomplete bowel movements a day, recommended increasing fiber supplementation IE Metamucil -Recommended yzeb-ppj-lyudkcv ib guard as well -Discussed repeat colonoscopy, deferred at this time Assessment & Plan (03/19/2025 9:12 PM CDT): Orders: CT Abdomen Pelvis WO Contrast; Future Abdominal pain 03/11/2025 Assessment & Plan (03/19/2025 9:12 PM CDT): Orders: CT Abdomen Pelvis WO Contrast; Future Chronic left-sided low back pain without sciatic a 01/13/2025 Assessment & Plan (03/19/2025 9:12 PM CDT): Rib pain on left side 01/13/2025 Acute intractable headache 01/13/2025 Globus pharyngeus 04/28/2022 Laryngopharyngeal reflux (LPR) 04/28/2022 Deviated nasal septum 04/28/2022 Encounters Date Type Department Care Team Description 06/24/2025 5:15 PM CDT Office Visit [facility] at [address] [phone] Teresa Bermudez NP Other chest pain (Primary Dx) 06/23/2025 Results Follow-Up [facility] at [address] [phone] Shayy Adair NP EMG/NCV - 06/19/2025 Documentation [facility] [address] [facility] [address] [place] [address] Job Aguirre MD 06/17/2025 9:00 AM CDT - 06/17/2025 11:59 PM CDT Hospital Encounter [facility] Testing [address] [place] [address] Numbness and tingling Discharge Disposition: Discharge to home or self care 05/28/2025 1:00 PM CDT Office Visit [facility] at [address] [place] [address] Donna Anguiano NP Left lower quadrant abdominal pain (Primary Dx) 05/15/2025 Results Follow-Up [facility] at [address] [phone] Paty Bowles NP Cryptosporidium and Giardia antigen assay Stool 05/14/2025 9:35 AM CDT Lab [address] [address] Change in consistency of stool 05/06/2025 Results Follow-Up [facility] at [address] [phone] Paty Bowles NP Stool culture Stool Rectum, FIT occult blood, fecal 05/05/2025 9:35 AM CDT Lab [address] [address] Change in consistency of stool 05/05/2025 Orders Only [facility] at [address] [phone] Paty Bowles, TRAFFIC OPERATIONS ENGINEER Change in consistency of stool (Primary Dx) 05/04/2025 2:30 PM CDT Office Visit [facility] at [address] [phone] Paty Bowles, SAULO Change in consistency of stool (Primary Dx); Anxiety 05/04/2025 Telephone [facility] at [address] [phone] Paty Bowles, SAULO Medical Question/Miscellaneou s 05/01/2025 Nurse Triage [facility] at [address] [phone] Paty Bowles TRAFFIC OPERATIONS ENGINEER 03/30/2025 Orders Only [facility] at [address] [phone] Paty Bowles, TRAFFIC OPERATIONS ENGINEER Abdominal pain; Left lower quadrant abdominal pain from Last 3 Months Immunizations Immunization Administration Dates Next Due Influenza, Quadrivalent, Kelly l Culture-based MDCK, Preservative Free, Antibiotic Free, Intramuscular 07/02/2021,06/18/2020 Influenza, Quadrivalent, Spl it, Preservative Free, Intramuscular 08/16/2022,07/15/2019 Tdap 01/28/2023,12/31/2020 Surgical History Surgery Date Site/Laterality Comments DILATION AND CURETTAGE OF UTERUS Medical History Medical History Date Comments Heart disease Dizziness Tinnitus Posterior vitreous detachment Migraines PVD (peripheral vascular disease) 12/2024 Left Eye Family History Medical History Relation Name Comments Diabetes Maternal Grandfather Heart disease Mother Cancer Paternal Grandmother Miscarriages / Stillbirths Sister Relation Name Status Comments Maternal Grandfather Mother Paternal Grandmother Sister Alive Social History Tobacco Use Types Packs/Day Years [...] on file Sexual Orientation Not on file Obstetrics History Last Filed Vital Signs Vital Sign Reading Time Taken Comments Blood Pressure 122/70 06/24/2025 5:22 PM CDT Pulse 87 06/24/2025 5:22 PM CDT Temperature 36.8 C (98.2 F) 06/24/2025 5:22 PM CDT Respiratory Rate 20 06/24/2025 5:22 PM CDT Oxygen Saturation 97% 06/24/2025 5:22 PM CDT Inhaled Oxygen Concentration - - Weight 59.9 kg (132 lb) 06/24/2025 5:22 PM CDT Height 172.7 cm (5' 8) 05/28/2025 1:11 PM CDT Body Mass Index 20.07 05/28/2025 1:11 PM CDT Plan of Treatment Health Maintenance Due Date Last Done Comments Breast Cancer Screening-Mammogram 1983 Cervical Cancer Screening 1983 Varicella Vaccines (1 of 2 - 13+ 2-dose series) 1996 HPV Vaccines (1 - 3-dose SCDM series) 2010 Covid-19 Vaccine ( season) 2025 01/28/2023, 08/06/2021, 02/04/2021, Additional history exists Influenza Vaccine (#1) 2025 , 07/02/2021, 06/18/2020, Additional history exists Regular Well Visit/Exam 18-64 03/11/2026 03/11/2025 Depression Screening 05/04/2026 05/04/2025, 01/14/20 DTaP/Tdap/Td Vaccine (3 - Td or Tdap) 01/28/2033 01/28/2023, 12/31/2020 Hepatitis B Screening Completed 01/23/2025 Hepatitis C Screening Completed 01/23/2025 Pneumococcal vaccine <65 Aged Out No longer eligible based on patient's age to complete this topic Procedures Procedure Name Priority Date/Time Associated Diagnosis Comments ECG 12-LEAD Routine 06/24/2025 5:35 PM CDT Other chest pain EMG/NCV Routine 06/17/2025 11:11 AM CDT Numbness and tingling CRYPTOSPORIDIUM AND GIARDIA ANTIGEN ASSAY Routine 05/14/2025 10:38 AM CDT Change in consistency of stool FIT OCCULT BLOOD, FECAL Routine 05/05/20 9:39 AM CDT Change in consistency of stool STOOL CULTURE Routine 05/05/2025 9:39 AM CDT Change in consistency of stool HEPATITIS C ANTIBODY Routine 01/23/2025 8:11 AM CDT Need for hepatitis C screening test Encounter for hepatitis C screening test for low risk patient from Last 3 Months or Most Recently Relevant to Health Maintenance Results * ECG 12 lead (06/24/2025 5:35 PM CDT) Teresa Bermudez NP ECG ORDERABLES Final Result * EMG/NCV - (06/17/2025 11:11 AM CDT) Anatomical Region Laterality Modality EMG Impressions 06/17/2025 11:11 AM CDT History: This is a 40 years old female patient being evaluated for tingling and numbness of hands and feet. Nerve conduction studies: Left median motor nerve conduction study showed normal DML, slightly low CMAP amplitude, slightly slow motor nerve conduction velocity and normal F wave latency. Right median motor nerve conduction study showed borderline prolonged DML, slightly low CMAP amplitude, normal motor nerve conduction velocity and normal F wave latency. Left ulnar motor nerve conduction study showed normal DML, normal CMAP amplitude, normal motor nerve conduction velocity and normal F wave latency. Right ulnar motor nerve conduction study showed normal DML, normal CMAP amplitude, normal motor nerve conduction velocity below the elbow, relatively slow motor nerve conduction velocity across the elbow and normal F wave latency. Bilateral radial antidromic sensory nerve conduction studies showed normal SNAP peak latencies, normal amplitudes and normal sensory nerve conduction velocities. Bilateral median and bilateral ulnar orthodromic sensory nerve conduction studies showed normal SNAP peak latencies, normal amplitudes and normal sensory nerve conduction velocities. Right median and right radial SNAP peak latency comparison study using ring electrodes showed SNAP peak latency 2.0 ms for right radial nerve and 3.0 ms for right median nerve. Left median and left radial SNAP peak latency comparison study using ring electrodes showed SNAP peak latency 1.8 ms for left radial nerve and 2.9 ms for left median nerve. Bilateral peroneal and bilateral tibial motor nerve conduction studies when recording from EDB showed normal DMLs, normal CMAP amplitudes, normal motor nerve conduction velocities and normal F wave latencies. Bilateral peroneal motor nerve conduction studies when recording from tibialis anterior showed normal DMLs, normal CMAP amplitudes, normal motor nerve conduction velocities. Bilateral tibial motor nerve conduction studies showed normal DMLs, normal CMAP amplitudes, normal motor nerve conduction velocities and normal F wave latencies. Bilateral sural antidromic sensory nerve conduction studies showed normal SNAP peak latencies, normal amplitudes and normal sensory nerve conduction velocities. Bilateral superficial peroneal antidromic sensory nerve conduction studies showed normal SNAP peak latencies, normal amplitudes and normal sensory nerve conduction velocities. Medial plantar and bilateral lateral plantar antidromic sensory nerve conduction studies showed normal SNAP peak latencies, normal amplitudes and normal sensory nerve conduction velocities. EMG studies: The concentric needle electrode examination was performed on bilateral FDI, APB, flexor carpi radialis, biceps and deltoids, as well as bilateral tibialis anterior, gastrocnemius medialis, peroneus longus, vastus medialis and extensor digitorum brevis.. There was no evidence of acute or chronic denervation or reinnervation. The interference pattern is full in all muscle tested. Impression: This is an abnormal study. There was electrophysiologic evidence suggestive of: 1. 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 2. 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 There was no electrophysiologic evidence suggestive of significant large fiber neuropathy of bilateral lower extremities. The needle EMG studies of bilateral upper and bilateral lower extremities did not show any ongoing denervation. The clinical correlation is recommended. us Paty Bowles NP NEUROLOGY ORDERABLES Final Re sult * Cryptosporidium and Giardia antigen assay Stool (05/14/2025 10:38 AM CDT) Giardia Ag Negative Negative Comment:Testing performed by : [facility], [address] [place]., [address] Cryptosporidium Ag Negative Negative [facility] Comment: Interpretive data: Testing performed by the [facility] using an immunoassay that detects Cryptosporidium and Giardia antigens in stool specimens. If comprehensive examination for ova and parasites is required, please request Ova and Parasite Examination. Testing performed by: [facility], [address] [place]., [address] Stool 05/14/2025 10:3 8 AM CDT 05/14/2025 2:00 PM CDT Paty Bowles NP LAB MICROBIOLOGY - GENERAL OR DERABLES Final Result [facility] [address] [facility] Department [place] [address] * FIT occult blood, fecal (05/05/2025 9:39 AM CDT) FIT occult blood, fecal Negative Negative [facility] Comment: Negative result. This test will not detect upper gastrointestinal bleeding; the HemoQuant test (9220)should be ordered if clinically indicated. Test Performed by: [facility] - [address] [address] Instrument Fitter: Miriam Dickson Ph.D.; CLIA# [id number] Stool 05/05/2025 9:39 AM CDT 05/05/2025 11:08 AM CDT Paty Bowles NP LAB BODY FLUIDS AND STOOLS OR DERABLES Final Result Performing Organization Address [facility] de Phone Number [facility] [address] [facility] [employer] [place] [address] [place] ref Lab * Stool culture Stool Rectum (05/05/2025 9:39 AM CDT) Pathologist [facility] Direct Specimen Exam Shiga Toxin Testing: Antigen detection assay for Shiga-toxin NEGATIVE for Shiga Toxin 1 and Shiga Toxin 2. Comment:Testing performed by : [facility], [address] [place]., [address] Report Final Report: No growth of enteric bacterial pathogens [facility] Comment:Testing performed by : [facility], [address] [place] [address]., [address] Stool (Rectum) 05/05/2025 9: 39 AM CDT 05/05/2025 1:30 PM CDT Narrative [facility] - 05/09/2025 9:19 AM CDT Received in transport media. Testing performed by [facility] ([phone]). Routine stool cultures include procedures to detect Salmonella, Shigella, Edwardsiella, Aeromonas, Pleisiomonas, Campylobacter, Yersinia, E. coli O157, and Shiga-like toxins. Vibrio is cultured only upon special request. If Vibrio is suspected, please call the laboratory at [phone]. Interpretive data was last updated January 15, 2017. Paty Bowles NP LAB MICROBIOLOGY - GENERAL OR DERABLES Final Result Performing Organization Address [facility] Co de Phone Number [facility] [address] [facility] [place] [address] * Hepatitis C antibody Blood (01/23/2025 8:11 AM CDT) [facility] Hep C Ab Nonreactive Nonreactive Comment: Interpretive Data Nonreactive: Antibodies to HCV not detected. Does NOT exclude the possibility of recent exposure to HCV. Equivocal: Equivocal for HCV antibodies. Supplemental molecular testing will be automatically performed to determine infection status in accordance with current CDC screening recommendations. Reactive: Positive for HCV antibodies. This may represent current or past HCV infection. Supplemental molecular testing will be automatically performed to determine current infection status in accordance with current CDC screening recommendations. Interpretive data was last revised on 2019. Blood 01/23/2025 8:11 AM CDT 01/23/2025 8:22 PM CDT Paty Bowles NP LAB MICROBIOLOGY - GENERAL OR DERABLES Final Result [facility] [address] [address] Department [place] [address] from Last 3 Months or Most Recently Relevant to Health Maintenance Insurance Beautified OPEN ACCESS Beautified OPEN ACCESS Care Teams Advisor Advocate Angel Co Founder Relationship Specialty Start Date End Date Paty Bowles NP [address] [facility] [address] [place] [address] PCP - General Family Medicine 01/13/25 Pedro Yuen MD [address] [facility] [address] [place] [address] Referring Physician Obstetrics and Gynecology 01/13/25
--- OUTSIDE RECORDS SUMMARY | 2025-06-24 19:04 | XMS_ITS | Encounter Summary ---
Author Organization [facility] Healthcare Address [address] [place] [address] Care Team Providers Care Registered Safety Engineer Name Role Phone Paty Bowles NP Primary Care Provider [phone] Pedro Yuen MD Unavailable [phone] Encounter Details Date Type Department Care Team (Late st Contact Info) Description 06/23/2025 Results Follow-Up [facility] Primary Care at [address] [phone] Shayy Adair NP [address] [place] [address] [address] [place] [address] EMG/NCV - Social History Tobacco Use Types Packs/Day Years [...] on file documented as of this encounter Plan of Treatment Not on file documented as of this encounter Visit Diagnoses Not on filedocumented in this encounter Care Teams Registered Safety Engineer Relationship Specialty Start Date End Date Paty Bowles NP [address] [facility] [address] [place] [address] PCP - General Family Medicine 01/13/25 Pedro Yuen MD [address] [facility] [address] [place] [address] Referring Physician Obstetrics and Gynecology 01/13/25 documented as of this encounter
--- OUTSIDE RECORDS SUMMARY | 2025-06-24 19:04 | XMS_ITS | Encounter Summary ---
Author Organization [facility] Healthcare Address [address] [place] [address] Care Team Providers Care Coal Deliverer Name Role Phone Paty Bowles NP Primary Care Provider [phone] Pedro Yuen MD Unavailable [phone] Reason for Visit * Reason Onset Date Comments Change In Bowel 05/01/2025 Encounter Details Date Type Department Care Team (Late st Contact Info) Description 05/01/2025 Nurse Triage [facility] Primary Care at [address] [address] Paty Bowles NP [address] [place] [address] Social History Tobacco Use Types Packs/Day Years [...] on file documented as of this encounter Miscellaneous Notes * Telephone Encounter - Donna Baldwin - 05/01/2025 4:44 PM CDT Call Back Caller???s Concern: Patient calling to follow up on an appointment that she states she was supposedto be offered for this upcoming Sunday afternoon. Wasn't very happy about not being contacted, unable to book her in the desired slot. Provider Jeramie available wasn't until the middle of May that I could book for. They may have been referencing the SDA slots that she has at 900a and 230p on 05/04. Does message need to be routed? Yes-Action Needed * Telephone Encounter - Mary Grace Monson RN - 05/01/2025 1:35 PM CDT Reason for Conversation Change In Bowel Background Pt reports that she is having narrow thin stools x 1 week. States that she always has abdominal pain and no change, slight bloating throughout the day. Last BM at 0200 this morning. She said she feels like she constantly need to have a bowel movement. Also report that she has a black spots near herperineum. They are not painful and one of them is slightly raised. Denies any additional symptoms. Pt would like to be seen in office. Home care provided. No available appointment for AC seals engraver libertad in office today or Sunday. Advised pt to call back with new or worsening symptoms. Encounter routed to the clinical pool. Please advise pt of appointment availability in office next week. Disposition See Within 3 Days in Office Reason for Disposition Pencil-like, narrow stools Protocols Used [id number] * Telephone Encounter - Mary Grace Monson RN - 05/01/2025 1:20 PM CDT Regarding: thin stool, feeling of incomplete bowel movement, black spots on perineum ----- Message from Inna Alvarez sent at 05/01/2025 12:57 PM CDT ----- Symptom Based Call Chief Complaint(s): thin stool, feeling of incomplete bowel movement, black spots on perineum Duration: 1 week What type of symptom(s) is the patient experiencing? Non-Emergent. Is this a new or reoccurring symptom(s)? new What have you tried to help your symptom(s)? unknown Why was appointment not scheduled? Appointment availability did not meet the patient's need. Additional Comments: none Does message need to be routed? Yes-Action Needed documented in this encounter Plan of Treatment Not on file documented as of this encounter Visit Diagnoses Not on filedocumented in this encounter Care Teams Coal Deliverer Relationship Specialty Start Date End Date Paty Bowles NP 2 [facility] [place] [address] [place] [address] PCP - General Family Medicine 01/13/25 Pedro Yuen MD [address] [place] [address] [place] [address] Referring Physician Obstetrics and Gynecology 01/13/25 documented as of this encounter
--- NOTE | 2025-06-24 19:05 | ECG_ITS ---
Test Date: 2025-06-24 19:11:56 Measurements Intervals [place] Rate: 77 P: 82 WI: 148 QRS: 90 QRSD: 92 T: 74 QT: 376 QTc: 426 Interpretive Statements SINUS RHYTHM POSSIBLE LEFT ATRIAL ENLARGEMENT INCOMPLETE RIGHT BUNDLE BRANCH BLOCK DELAYED PRECORDIAL R/S TRANSITION BORDERLINE ST-T WAVE ABNORMALITY- ANTEROLAT/INF LEADS BASELINE ARTIFACT- AVL, V2-V3 BORDERLINE ECG No previous ECG available for comparison Electronically Signed On 06-25-2025 05:16:59 CDT by Royce Stewart D.O.
[2025-06-24 19:24] LABS: Hematocrit 40.2 % (37.0-47.0); Hemoglobin 13.1 g/dL (12.0-15.0); Immature Granulocyte Percent A 0.2 % (0-0.5); Lymphocytes Absolute Auto 1.53 K/mm3 (0.9-3.2); Mean Corpuscular HGB Conc 32.6 g/dl (32-36); Mean Corpuscular Hemoglobin 30.4 pg (26-34); Mean Corpuscular Volume 93.3 fl (80-100); Nucleated Red Blood Cells Absolute Auto 0.000 K/mm3 (0.0-0.012); Nucleated Red Blood Cells Perc 0.0 % (0.0-0.2); Platelet Count Result 188 k/mm3 (150-375); Red Blood Count 4.31 M/mm3 (4.2-5.4); White Blood Count 6.3 K/mm3 (4.5-10.0)
[2025-06-24 19:35] LABS: Alanine Aminotransferase 16 U/L (6-35); Albumin Level 4.3 g/dL (3.5-5.1); Alkaline Phosphatase 42 U/L (38-126); Anion Gap 7 mmol/L (4-12); Aspartate Amino Transferase 23 U/L (14-36); Bilirubin,Total 0.3 mg/dL (0.2-1.3); Blood Urea Nitrogen 18 mg/dL (7-17); Calcium 9.5 mg/dL (8.4-10.2); Carbon Dioxide 27 mmol/L (22-30); Chloride 103 mmol/L (98-107); Estimated Glomerular Filt Rate > 60; Glucose 119 mg/dL (65-110); Lipase 76 U/L (23-300); Potassium 3.7 mmol/L (3.4-5.0); Sodium 137 mmol/L (137-145); Total Protein 7.6 g/dL (6.3-8.2)
[2025-06-24 19:36] VITALS: BP 156/78; PULSE 79; RESP 17; TEMP 36.9; O2SAT 100
[2025-06-24 19:46] LABS: Troponin I < 0.012 ng/mL (0.000-0.034)
[2025-06-24 19:55] LABS: INR 1.1; Prothrombin Time 13.7 Seconds (11.1-14.7)
[2025-06-24 19:56] LABS: Partial Thromboplastin Time 31.9 Seconds (22.3-36.8)
--- NOTE | 2025-06-24 22:12 | ECG_ITS ---
Test Date: 2025-06-24 22:25:16 Measurements Intervals [place] Rate: 69 P: 74 AK: 149 QRS: 88 QRSD: 100 T: 70 QT: 383 QTc: 413 Interpretive Statements SINUS RHYTHM BORDERLINE ST-T WAVE ABNORMALITY- ANTEROLAT/INF LEADS BORDERLINE ECG Compared to ECG 06/24/2025 19:11:56 Incomplete right bundle-branch block no longer present Electronically Signed On 06-25-2025 05:20:30 CDT by Royce Stewart D.O.
[2025-06-24 22:34] VITALS: BP 132/88; PULSE 79; RESP 14; O2SAT 100
[2025-06-24] MEDS: ASPIRIN 81 MG CHEWABLE TABLET 324 MG PO (22:43)
[2025-06-24 22:50] LABS: Troponin I < 0.012 ng/mL (0.000-0.034)
--- NOTE | 2025-06-24 23:52 | ED.CHESTPAIN ---
HPI - Chest Pain General Chief Complaint: Chest Pain Stated Complaint: CP x 1 week Time Seen by Provider: 06/24/25 21:58 Source: patient Mode of arrival: ambulatory Limitations: no limitations History of Present Illness HPI narrative: Patient is a 40-year-old female who presents the ED with report of midsternal chest pain. Patient reports pain has been intermittent since 06/13-06/14. States pain begins midsternal and radiates slightly underneath bilateral breasts. Reports pain is worse with certain movements, bending over, her child resting on her chest. Does note that her children have been sick with upper respiratory symptoms and she has had a mild cough. Denies fevers, shortness of breath, pleuritic pain. Denies pain or swelling in her legs. Denies abdominal pain, nausea, vomiting. Denies history of cardiac disease. She does note history of coarctation of the aorta in her mother. Related Data Home Medications ?Medication ?Instructions ?Recorded ?Confirmed ?Last Taken ?Type calcium carbonate (Calcium 500) 500 mg PO DAILY 04/26/20 01/01/24 02/21/23 20:00 History vits no.124-ferrous fum 1 tablet PO DAILY 04/26/20 01/01/24 02/21/23 20:00 History 27 mg iron-folic acid 800 mcg tablet ( Vitamin) magnesium 200 mg tablet 200 mg PO DAILY 05/17/22 01/01/24 02/21/23 20:00 History Allergies Allergy/AdvReac Type Severity Reaction Status Date / Time Iodinated Contrast Media Allergy Intermediate Rash Verified 12/31/23 10:28 amoxicillin Allergy Unknown Rash Verified 12/31/23 10:28 Sulfa (Sulfonamide Allergy Unknown Rash Verified 12/31/23 10:28 Antibiotics) Review of Systems Review of Systems: All systems reviewed & are unremarkable except as noted in HPI. All systems reviewed & are unremarkable except as noted in HPI and below PMFSH Past Medical History Medical History Osteopenia Degenerative disc disease at L5-S1 level Scoliosis Restless leg Headache Premature ventricular contraction not as frequent now Migraine Right sided abdominal pain Surgical History Surgical History History of D&C Family History Family History Grandparent Diabetes mellitus Family history of pancreatic cancer Alcoholism Father Patient's father is in good health Alcoholism Mother Heart disease Other Thyroid disorder Other Family history of lymphoma Family history of malignant neoplasm of thyroid Social History Social History Smoking status: Never smoker Second hand tobacco smoke exposure: No Alcohol intake: current Substance use: never Lack of Transportation: No Lack of Food: Never True Current Housing: I Have Housing Concerned About Future Housing: No Difficulty Paying Gas/Electric Bills: No Difficulty Paying for Meds: No Currently Unemployed: No Education: Bachelor's Degree Difficulty w/ Childcare or Family Care: No Living arrangements: with family Gender identity (if verbalized by the patient): Female Spiritual care concerns: No Exam Narrative: GENERAL: Well appearing, thin, non-toxic, in no acute distress. HEAD: Normocephalic, atraumatic. RESPIRATORY: Airway patent, respirations nonlabored. Clear to auscultation bilaterally, no rales, rhonchi, wheezing. CARDIOVASCULAR: Regular rate and rhythm without murmurs, rubs, or gallops. Peripheral pulses intact ABDOMINAL: Soft, nontender, nondistended. Normoactive BS. MUSCULOSKELETAL: Moves all extremities. No gross deformities. Minimal tenderness throughout midsternal region/costochondral junctions. No peripheral edema. No calf tenderness. SKIN: Warm, dry, normal color. NEURO: A&O X3. Speech clear. Cranial nerves II-XII grossly intact. Steady gait. No ataxic movements. PSYCHIATRIC: Appropriate mood and affect. Normal interaction. Course Vital Signs Vital signs: Vital Signs Temperature 98.4 F 06/24/25 19:36 Pulse Rate 79 06/24/25 19:36 Respiratory Rate 17 06/24/25 19:36 Blood Pressure 156/78 H 06/24/25 19:36 Pulse Oximetry 100 06/24/25 19:36 Oxygen Delivery Room Air 06/24/25 19:36 Temperature 98.4 F 06/24/25 19:36 Pulse Rate 79 06/24/25 22:34 Respiratory Rate 14 06/24/25 22:34 Blood Pressure 132/88 06/24/25 22:34 Pulse Oximetry 100 06/24/25 22:34 Oxygen Delivery Room Air 06/24/25 22:34 MDM - Chest Pain MDM Narrative Medical decision making narrative: EKG with sinus rhythm, no concerning ST changes. Baseline troponin undetectable HEART score =0, no significant RFs for ACS Chest x-ray is clear Patient is PERC negative. Very low suspicion for PE. No evidence of DVT on exam. Remainder basic laboratory studies are otherwise unremarkable. 3 hour EKG without interval changes. 3 hour troponin also undetectable. Very low suspicion for ACS Patient reports recent mild cough and states her children have been sick with URI symptoms. Suspicious for costochondritis picture. Discussed continued management of such, otherwise reassuring workup. Recommended that patient have follow-up with primary care doctor for further evaluation. Given strict return precautions. She is in agreement with plan, feels comfortable going home. Discharged in stable condition. Medical Records Data Attestation: I reviewed the patient's medical records. Lab Data Attestation: I reviewed the patient's lab results. 06/24/25 19:18 06/24/25 19:18 Labs: Lab Results 06/24/25 06/24/25 Range/Units 19:18 22:16 WBC 6.3 (4.5-10.0) K/mm3 RBC 4.31 (4.2-5.4) M/mm3 Hgb 13.1 (12.0-15.0) g/dL Hct 40.2 (37.0-47.0) % MCV 93.3 (80-100) fl MCH 30.4 (26-34) pg MCHC 32.6 (32-36) g/dl RDW 12.2 (11.5-14.5) % Plt Count 188 (150-375) k/mm3 MPV 9.6 (7.4-10.4) fl Immature Gran % (Auto) 0.2 (0-0.5) % Neut % (Auto) 63.4 (45.5-73.1) % Lymph % (Auto) 24.2 (18.3-44.2) % Dunn % (Auto) 6.5 (2.6-8.5) % Eos % (Auto) 4.9 H (0-4.4) % Baso % (Auto) 0.8 (0.2-1.2) % Lymph # (Auto) 1.53 (0.9-3.2) K/mm3 Dunn # (Auto) 0.4 (0.1-0.6) K/mm3 Eos # (Auto) 0.3 (0-0.3) K/mm3 Baso # (Auto) 0.1 (0.0-0.1) K/mm3 Abs Immat Gran (auto) 0.01 (0.00-0.031) K/mm3 Absolute Neuts (auto) 4.0 (1.3-6.7) K/mm3 Absolute Nucleated RBC 0.000 (0.0-0.012) K/mm3 Nucleated RBC % 0.0 (0.0-0.2) % PT 13.7 (11.1-14.7) Seconds INR 1.1 APTT 31.9 (22.3-36.8) Seconds Sodium 137 (137-145) mmol/L Potassium 3.7 (3.4-5.0) mmol/L Chloride 103 (98-107) mmol/L Carbon Dioxide 27 (22-30) mmol/L Anion Gap 7 (4-12) mmol/L BUN 18 H (7-17) mg/dL Creatinine 0.87 (0.7-1.0) mg/dL Estim Creat Clear Calc Not Reportable Estimated GFR > 60 (59 - ) Glucose 119 H (65-110) mg/dL Calcium 9.5 (8.4-10.2) mg/dL Total Bilirubin 0.3 (0.2-1.3) mg/dL AST 23 (14-36) U/L ALT 16 (6-35) U/L Alkaline Phosphatase 42 (38-126) U/L Troponin I < 0.012 < 0.012 (0.000-0.034) ng/mL Total Protein 7.6 (6.3-8.2) g/dL Albumin 4.3 (3.5-5.1) g/dL Lipase 76 (23-300) U/L Imaging Data Attestation: I personally reviewed and interpreted this imaging study as follows: Radiologist's impression: ITS Impressions Chest X-Ray 06/24/25 19:36 IMPRESSION: No acute lung findings.] [ ] ECG Data EKG #1: Attestation: I personally reviewed and interpreted this ECG as follows: ECG completion date: 06/25/25 ECG completion time: 19:11 EKG Interpretation: normal rate (77), sinus rhythm and no ST changes Discharge Plan Discharge Clinical Impression: Atypical chest pain Patient Disposition: Home Condition: Stable Instructions: Antibiotic Form, Chest Pain (ED), Costochondritis (ED) Additional Instructions: Your workup here was reassuring against a cardiac cause of your chest pain. Recommend Tylenol, ibuprofen as needed for pain, limiting strenuous activity. Follow-up with your primary care doctor and/or Cardiology for further evaluation. Return to the ED if you experience worsening or severe pain, difficulty breathing, unable to keep down food or drink, dizziness/lightheadedness, pain or swelling in your legs, or any other symptoms of concern. Patient Language: Swiss Prescriptions: No Action magnesium 200 mg tablet 200 mg PO DAILY calcium carbonate [Calcium 500] 500 mg calcium (1,250 mg) Tablet 500 mg PO DAILY Vitamin 27 mg iron- 800 mcg Tablet 1 tablet PO DAILY meclizine 25 mg tablet 25 mg PO BID PRN (Reason: dizziness) Qty: 30 1RF fluticasone propionate [Flonase Allergy Relief] 50 mcg/actuation spray,suspension 2 spray intranasal DAILY Qty: 16 3RF Rx Instructions: administer into each nostril doxycycline hyclate 100 mg tablet 100 mg PO BID Qty: 14 0RF Follow-up/Referrals: Sidney,VICKY Mar [Primary Care Provider, Unknown] Time of Disposition: 23:58 Quality HEART score for chest pain patients History: slightly suspicious ECG: normal Age: < or = to 45 years Risk factors: no risk factors known Troponin: < or = to 1x normal limit Heart score: 0
[2025-06-25 00:25] VITALS: BP 126/84; PULSE 74; RESP 16; O2SAT 99
[2025-06-25 01:00] VITALS: BP 126/84; PULSE 74; RESP 16; O2SAT 99
== END 2025-06-25 03:40 | disposition home or self-care (01) ==
PROVIDERS: Student in an Organized Health Care Education/Training Program; Emergency Provider Physician Assistant; PCP Nurse Practitioner Family
DX: R07.89 Other chest pain (principal); M85.80 Other specified disorders of bone density and structure, unspecified site; M51.379 Other intervertebral disc degeneration, lumbosacral region without mention of lumbar back pain or lower extremity pain; G25.81 Restless legs syndrome; I45.10 Unspecified right bundle-branch block; R94.31 Abnormal electrocardiogram [ECG] [EKG]
CPT/HCPCS: 36415; 71046; 80053; 83690; 84484; 85025; 85610; 85730; 93005; 99284; A9270